=== PATIENT | male | born 1955 ===

== ENCOUNTER → 2023-02-10 16:16 | Outpatient (CLI) | payer BC, SELFPAY ==
[2023-02-10 18:28] LABS: BUN Creatinine Ratio 9.4 (6-22); Blood Urea Nitrogen 10 mg/dL (9-20); Carbon Dioxide 29 mmol/L (22-32); Chloride 99 mmol/L (98-107); Estimated Glomerular Filt Rate > 60 mL/min (>60); Glucose 91 mg/dL (80-110); HEMOLYSIS < 15 (0-50); Potassium 4.8 mmol/L (3.4-5.1); Sodium 136 mmol/L (137-145)
== END ==
PROVIDERS: Referring Provider Physician Assistant; Visit Provider Physician Assistant
DX: U07.1 COVID-19 (principal)
CPT/HCPCS: 36415; 80048

== ENCOUNTER → 2023-06-02 07:05 | Outpatient (CLI) | payer BC, SELFPAY ==
[2023-06-02 08:15] LABS: Hematocrit 40.3 % (41-53); Mean Corpuscular HGB Conc 34.7 % (30-36); Mean Corpuscular Hemoglobin 32.3 PG (26-34); Mean Corpuscular Volume 93.3 fL (80-100); Platelet Count 211 X10^3/uL (150-400); Red Blood Cell Count 4.32 X10^6/uL (4.5-5.9); White Blood Cell Count 4.4 X10^3/uL (4.5-11.0)
[2023-06-02 08:45] LABS: Appearance Urine UA CLEAR; Bilirubin Urine UA NEGATIVE (NEGATIVE); Color Urine UA YELLOW; Glucose Urine UA NEGATIVE (Negative); Ketones Urine UA NEGATIVE (NEGATIVE); Leukocyte Esterase Urine UA NEGATIVE (NEGATIVE); Nitrite Urine UA NEGATIVE (Negative); Occult Blood Urine UA NEGATIVE (Negative); Protein Urine UA NEGATIVE (Negative); Urobilinogen Urine UA 0.2 E.U./dL (0.2)
[2023-06-02 08:54] LABS: Bacteria Urine None Seen; Culture Indicated Urine Cult Not Indicated; RBC Urine None Seen (0-5/HPF); Squamous Epithelial Cell Urine None Seen (0-5/HPF); WBC Urine None Seen (0-5/HPF)
[2023-06-02 08:56] LABS: Alanine Aminotransferase 21 IU/L (<50); Albumin Globulin Ratio 1.1 (1.0-2.8); Alkaline Phosphatase 49 U/L (38-126); Aspartate Aminotransferase 31 IU/L (17-59); BUN Creatinine Ratio 14.3 (6-22); Bilirubin Total 1.1 mg/dL (0.2-1.3); Blood Urea Nitrogen 16 mg/dL (9-20); Calcium 9.1 mg/dL (8.4-10.2); Carbon Dioxide 30 mmol/L (22-32); Chloride 104 mmol/L (98-107); Cholesterol 220 mg/dL (140-199); Estimated Glomerular Filt Rate > 60 mL/min (>60); Globulin 3.8 g/dL (1.7-4.1); Glucose 125 mg/dL (80-110); HDL Cholesterol 44 mg/dL (40-60); HEMOLYSIS < 15 (0-50); LDL Cholesterol Calculated 158 mg/dL (<100); Potassium 5.1 mmol/L (3.4-5.1); Sodium 138 mmol/L (137-145); Total Protein 7.8 g/dL (6.3-8.2); Triglycerides 90 mg/dL (35-150)
[2023-06-02 09:20] LABS: Prostate Specific Antigen 3.58 ng/mL (0.10-4.00)
[2023-06-02 09:21] LABS: TSH w/ Reflex to FT4 2.61 uIU/mL (0.47-4.68)
== END ==
PROVIDERS: PCP Internal Medicine; Referring Provider Internal Medicine; Visit Provider Internal Medicine
DX: E78.2 Mixed hyperlipidemia (principal); N13.8 Other obstructive and reflux uropathy; N40.1 Benign prostatic hyperplasia with lower urinary tract symptoms; S42.024S Nondisplaced fracture of shaft of right clavicle, sequela
CPT/HCPCS: 36415; 80053; 80061; 81001; 84153; 84443; 85027

== ENCOUNTER → 2023-11-19 | Outpatient (CLI) | payer BC, SELFPAY ==
--- NOTE | 2023-11-19 08:51 | DI.RAD.S_ITS ---
PROCEDURE: [place] SHOULDER INJECTION MR/CT RT INDICATIONS: R/O SLAP TEAR COMPARISON: None. TECHNIQUE: The indications, alternatives, benefits, risks, and complications of the procedure were explained to the patient. Written informed consent was obtained and placed in the chart. The shoulder was examined fluoroscopically and a site for needle placement chosen for entry into the glenohumeral joint from an anterior approach. The skin was prepped and draped in a sterile fashion, and 1% lidocaine infiltrated from skin down to joint capsule. A spinal needle was inserted into the glenohumeral joint, and a small amount of iodinated contrast media injected to confirm intra-articular placement of the needle tip. This was followed by approximately 12 mL dilute solution of a gadolinium containing MR contrast agent. The needle was removed and a dressing was applied. The patient was given postprocedural instructions and sent to the MR suite for MR imaging. FINDINGS: A single fluoroscopic spot image demonstrates intra-articular location of injected iodinated contrast. IMPRESSION: Successful fluoroscopically guided administration of dilute Gadolinium solution into the shoulder joint for MR arthrogram. Dictated by: Jez Reed M.D. on 11/20/2023 at 9:58 Approved by: Jez Reed M.D. on 11/20/2023 at 9:58
--- NOTE | 2023-11-19 08:52 | DI.MRI.S_ITS ---
PROCEDURE: MR SHOULDER RT W CON INDICATIONS: R/O SLAP TEAR TECHNIQUE: After the administration of 12 mL of dilute intra-articular Gadolinium contrast, oblique coronal T1 and T2 spin echo with fat saturation, oblique sagittal T1 spin echo with and without fat saturation, oblique sagittal T2 fast spin echo with fat saturation, axial T1 spin echo with fat saturation through the shoulder. COMPARISON: [facility], , [place] SHOULDER INJECTION MR/CT RT, 11/19/2023, 9:13. FINDINGS: Image quality: Limited. Significant susceptibility artifacts from surgical hardware are seen. Rotator cuff: There is suggestion of low-grade articular and bursal surface partial thickness tear involving distal supraspinatus at its insertion on the humeral head extending to musculotendinous junction. Low-grade articular and bursal surface partial thickness tear involving distal infraspinatus at its insertion on the humeral head is also seen extending to musculotendinous junction. The subscapularis tendon is intact. No full-thickness rotator cuff tendon rupture. No significant rotator cuff muscle atrophy on sagittal images. Bones and bursae: Postsurgical changes are noted in clavicular shaft with significant susceptibility artifacts. Postsurgical changes also noted involving anterolateral aspect of proximal humeral shaft adjacent to bicipital groove. Capsule and soft tissues: There is subtle signal abnormality and contour irregularity involving superior anterior labrum at 12 to 1 o'clock position concerning for subtle superior anterior labral tear. There is proximal long head of biceps tenodesis with intact biceps tendon to the extent visualized. The rotator interval appears normal, without fibrosis. The coracohumeral ligament is of normal thickness. No intra-articular bodies. IMPRESSION: 1. Limited study due to significant susceptibility artifacts. 2. Post ORIF changes are seen in clavicular shaft. No gross acute fracture or dislocation. No gross intra-articular loose bodies. 3. Suggestion of low-grade articular and bursal surface partial thickness tear involving distal supraspinatus extending to musculotendinous junction. No full-thickness rotator cuff tendon rupture. 4. Finding is concerning for subtle superior anterior labral tear at 12 to 1 o'clock position. 5. Prior proximal long head of biceps tenodesis with postsurgical changes. Dictated by: Brandon Alarcon M.D. on 12/01/2023 at 15:59 Approved by: Brandon Alarcon M.D. on 12/01/2023 at 16:03
== END ==
LOC: RAD 08:50
PROVIDERS: PCP Internal Medicine; Referring Provider Orthopaedic Surgery; Visit Provider Pediatrics
DX: S43.431A Superior glenoid labrum lesion of right shoulder, initial encounter (principal); X58.XXXA Exposure to other specified factors, initial encounter
CPT/HCPCS: 23350; 73222; 77002

== ENCOUNTER → 2023-12-04 08:49 | Outpatient (CLI) | payer BC, SELFPAY ==
--- NOTE | 2023-12-04 08:50 | DI.RAD.S_ITS ---
PROCEDURE: [place] SHOULDER INJECTION MR/CT RT INDICATIONS: Superior glenoid labrum lesion of right shoulder, COMPARISON: [facility], MR, MR SHOULDER RT W CON, 11/19/2023, 9:39. [facility], [place], [place] SHOULDER INJECTION MR/CT RT, 11/19/2023, 9:13. TECHNIQUE: The indications, alternatives, benefits, risks, and complications of the procedure were explained to the patient. Written informed consent was obtained and placed in the chart. The shoulder was examined fluoroscopically and a site for needle placement chosen for entry into the glenohumeral joint from an anterior approach. The skin was prepped and draped in a sterile fashion, and 1% lidocaine infiltrated from skin down to joint capsule. A spinal needle was inserted into the glenohumeral joint, and a small amount of iodinated contrast media injected to confirm intra-articular placement of the needle tip. This was followed by approximately 12 mL of iodinated contrast. The needle was removed and a dressing was applied. The patient was given postprocedural instructions and sent to the CT suite for imaging. FINDINGS: A single fluoroscopic spot image demonstrates intra-articular location of injected iodinated contrast. IMPRESSION: Successful fluoroscopically guided administration of iodinated contrast solution into the shoulder joint for CT arthrogram. Dictated by: Jensen Figueroa M.D. on 12/04/2023 at 9:31 Approved by: Jensen Figueroa M.D. on 12/04/2023 at 9:33
--- NOTE | 2023-12-04 08:51 | DI.CT.S_ITS ---
PROCEDURE: CT SHOULDER RIGHT WITH CON INDICATIONS: Superior glenoid labrum lesion of right shoulder, TECHNIQUE: After the intra-articular administration of 12 mL of dilute non-ionic contrast, 1-1.5 mm thick sections acquired from the acromioclavicular joint to the inferior scapula, with coronal and sagittal reformatting. COMPARISON: [facility], MR, MR SHOULDER RT W CON, 11/19/2023, 9:39. FINDINGS: Image quality: Diagnostic. Beam hardening artifacts from right shoulder hardware are seen. Bones: There is prior fixation of right clavicular shaft with beam hardening artifacts. No gross hardware loosening or failure. [id number] acromioclavicular joint osteoarthritic changes are seen with joint space narrowing and downward osteophyte formation depressing the musculotendinous junction of supraspinatus. Mild glenohumeral joint space narrowing and subchondral sclerosis is also noted. Healing fracture involving distal clavicular shaft is seen. No new fracture or dislocation. No suspicious bony lesions. The visualized right upper to mid ribs are intact. Soft tissues: There is no full-thickness rotator cuff tendon rupture. No significant rotator cuff muscle atrophy is seen on sagittal images. No abnormal soft tissue calcifications are seen. No gross intra-articular loose bodies. Evaluation of right shoulder labrum shows contrast extension and fraying of superior anterior labrum extending from 12-1 o'clock position consistent with superior anterior labral tear. IMPRESSION: 1. Prior ORIF of distal clavicle with beam hardening artifacts. No gross hardware loosening or failure. No new fracture or dislocation. 2. 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 No intra-articular loose bodies. 3. Suggestion of superior anterior right shoulder labral tear at 12 to 1 o'clock position with contrast extension and subtle contour irregularity. 4. No full-thickness rotator cuff tendon rupture. No significant rotator cuff muscle atrophy. No abnormal soft tissue calcifications. Dictated by: Brandon Alarcon M.D. on 12/04/2023 at 11:36 Approved by: Brandon Alarcon M.D. on 12/04/2023 at 11:41
[2023-12-04] MEDS: LIDOCAINE 1% 20 ML INJ (12:37)
== END ==
PROVIDERS: PCP Internal Medicine; Referring Provider Orthopaedic Surgery; Visit Provider Orthopaedic Surgery
DX: S43.003A Unspecified subluxation of unspecified shoulder joint, initial encounter (principal); S43.431A Superior glenoid labrum lesion of right shoulder, initial encounter; M19.011 Primary osteoarthritis, right shoulder; X58.XXXA Exposure to other specified factors, initial encounter
CPT/HCPCS: 23350; 73201; 77002

== ENCOUNTER → 2024-06-21 10:49 | Outpatient (CLI) | payer BC, SELFPAY ==
[2024-06-21 12:58] LABS: Aspartate Aminotransferase 32 IU/L (17-59); BUN Creatinine Ratio 14.2 (6-22); Blood Urea Nitrogen 15 mg/dL (9-20); Carbon Dioxide 30 mmol/L (22-32); Chloride 104 mmol/L (98-107); Cholesterol 193 mg/dL (140-199); Estimated Glomerular Filt Rate > 60 mL/min (>60); Glucose 105 mg/dL (80-110); HDL Cholesterol 51 mg/dL (40-60); HEMOLYSIS < 15 (0-50); LDL Cholesterol Calculated 119 mg/dL (<100); Potassium 4.5 mmol/L (3.4-5.1); Sodium 140 mmol/L (137-145); Triglycerides 114 mg/dL (35-150)
[2024-06-21 13:24] LABS: Prostate Specific Antigen 5.58 ng/mL (0.10-4.00)
== END ==
PROVIDERS: PCP Internal Medicine; Referring Provider Internal Medicine; Visit Provider Internal Medicine
DX: N40.1 Benign prostatic hyperplasia with lower urinary tract symptoms (principal); N13.8 Other obstructive and reflux uropathy; E78.2 Mixed hyperlipidemia
CPT/HCPCS: 36415; 80048; 80061; 84153; 84450

== ENCOUNTER → 2024-12-13 10:06 | Outpatient (CLI) | payer MEDICARE, OTHER, SELFPAY ==
[2024-12-13 11:32] LABS: Cholesterol 200 mg/dL (140-199); HDL Cholesterol 46 mg/dL (40-60); LDL Cholesterol Calculated 134 mg/dL (<100); Triglycerides 98 mg/dL (35-150)
[2024-12-13 11:58] LABS: Prostate Specific Antigen 6.31 ng/mL (0.10-4.00)
== END ==
LOC: LAB 10:08
PROVIDERS: PCP Internal Medicine; Referring Provider Internal Medicine; Visit Provider Internal Medicine
DX: E78.2 Mixed hyperlipidemia (principal); R97.20 Elevated prostate specific antigen [PSA]
CPT/HCPCS: 36415; 80061; 84153